=== PATIENT | female | born 1960 | race Caucasian/White ===

== ENCOUNTER 2017-05-12 07:12 | Inpatient (IN) | payer OTHER ==
[~2017-05-12] VITALS: Ht 170.2 cm; Wt 101.6 kg
--- NOTE | ~2017-05-12 | CR72 ---
[facility] A Service of [facility] & [facility] RADIOLOGY TEXT RESULTS PATIENT: BIANCA OLIVARES LOCATION: [facility] : 58 UNIT #: [id number] AGE: [address]: Carole Longoria APRN SEX: F ORDER DR: [id number] [facility] [address] [place], [place] [address] [id number] MR#: [id number] Acc #: [id number] NAME: BIANCA OLIVARES : 1960 SEX: F STUDY DATE/TIME: 05/12/2017 8:10 UNIT: [facility] ROOM: STUDY DESCRIPTION: CR Chest Single View Portable Attending Physician: Carole Longoria A.P.R.N. Ordering Physician: Ihsan Price M.D. Primary Care Physician: Primary Care Physician No MEDICAL IMAGING REPORT This report is preliminary unless electronic signature is present EXAM Portable chest INDICATION Shortness of air and chest pain. FINDINGS A portable view of the chest was obtained. It is compared to 02/10/2017. The heart size and vascularity are normal. There is some patchy right infrahilar infiltrate probably within the middle lobe. The bones are normal. IMPRESSION There is some density noted in the right lower lung probably within the right middle lobe consistent with an infiltrate. Dictated by... Malcom Hernandes M.D. THIS IS AN ELECTRONICALLY VERIFIED REPORT Malcom Hernandes M.D. at 05/12/2017 10:51 AM OH/martinez TD: 05/12/2017 10:22 JOB #: [id number] MEDICAL IMAGING REPORT Page 1 of 1 COPY
--- NOTE | ~2017-05-12 | EKG ---
PATIENT: BIANCA OLIVARES UNIT #: [id number] Ventricular Rate: 56 BPM Atrial Rate: 56 BPM P-R Interval: 140 ms QRS Duration: 90 ms Q-T Interval: 440 ms QTC Calculation(Bezet): 424 ms P [place]: 54 degrees Calculated R [place]: 52 degrees Calculated T [place]: 110 degrees Diagnosis Line: Sinus bradycardia Diagnosis Line: Septal infarct (cited on or before 05-SEP-2014) Diagnosis Line: T wave abnormality, consider anterolateral Diagnosis Line: ischemia Diagnosis Line: Abnormal ECG Diagnosis Line: When compared with ECG of 16-MAY-2017 06:00, Diagnosis Line: (unconfirmed) Diagnosis Line: Questionable change in initial forces of Septal Diagnosis Line: leads Diagnosis Line: T wave inversion more evident in Lateral leads Diagnosis Line: Confirmed by DIONTE CACERES MD ([id number]) on 05/17/2017 Diagnosis Line: 7:09:04 PM INTERPRETING MD: MORRIS GEE
--- NOTE | ~2017-05-12 | CO ---
Unit #: [id number] #: [id number] Patient: SHIRA GARDNER [id number] [address] [place], [place] [address] [id number] I MR#: [id number] NAME: SHIRA GARDNER ROOM: 334 Age: 56 Sex: F Admission Date: 05/12/2017 : 1960 Attending Physician: Rola Kerr M.D. Primary Care Physician: Primary Care Physician No Consultation Date: 05/14/2017 CONSULTATION REPORT DISCUSSION Ms. Shira Gardner is a 56-year-old female, seen in room 334 bed 1 on 05/14/[facility]. The patient diagnosed with mood disorder, compliant with medication, lying comfortably in bed. The patient was somewhat sleepy after cardiac cath. The patient vital signs; temperature 98.2, pulse 68, respirations 20, blood pressure 124/68, and oxygen saturation 100%. The patient still somewhat anxious, nervous, but denied any suicidal or homicidal ideation. Denied any psychotic symptom. Reports medication is helping her. REVIEW OF SYSTEMS Complete review of system unremarkable. MENTAL STATUS EXAMINATION General appearance, the patient dressed casually. Attention span and concentration, fair. Oriented in place and person. Mood and affect, sad and dysphoric. Speech, monotone. Thought process, circumstantial. The patient denied any thoughts of harming self or others. Recent and remote memory, poor. Insight and judgment, poor. DIAGNOSIS Bipolar mood disorder, recurrent, severe, depressed, F31.9. ASSESSMENT/PLAN 1. Supportive psychotherapy and psychoeducation provided to the patient. 2. Educated about benefits and side effects of medication and course and prognosis of illness. 3. Advised to continue with current medication. If needed, consider further adjustment of medication. The patient is currently on Lamictal, Klonopin, and Restoril. Still having anxiety as the patient is on Solu-Medrol 80 mg q.12 hour which may make the anxiety worse. Dictated by... Johanne Preciado/luisito TD: 05/15/2017 06:37 JOB #: [id number] Unit #: [id number] #: [id number] Patient: SHIRA GARDNER CONSULTATION REPORT Page 1 of 1 X Eder Anguiano MD CONSULTATION REPORT
--- NOTE | ~2017-05-12 | CT57 ---
[facility] A Service of [facility] & [facility] & [facility] RADIOLOGY TEXT RESULTS PATIENT: BIANCA OLIVARES LOCATION: [facility] 334- : 58 UNIT #: [id number] AGE: [address]: Rola Kerr MD SEX: F ORDER DR: [id number] [facility] [address], [place] [address] [id number] I MR#: [id number] Acc #: [id number] NAME: BIANCA OLIVARES : 1960 SEX: F STUDY DATE/TIME: 05/13/2017 14:37 UNIT: [address] ROOM: Critical access hospital STUDY DESCRIPTION: CT Chest Wo Cont Attending Physician: Rola Kerr M.D. Ordering Physician: Rola Kerr M.D. Primary Care Physician: Primary Care Physician No MEDICAL IMAGING REPORT This report is preliminary unless electronic signature is present EXAM CT chest without contrast HISTORY Shortness of air for 1 day. Suspected infiltrate on chest x-ray yesterday. FINDINGS This CT exam was performed with one or more of the following radiation dose reduction techniques: Automatic exposure control, adjustment of mA and/or kV according to patient size, and iterative reconstruction. CT chest without contrast demonstrates no airspace infiltrates or effusions. Minimal subpleural atelectasis posterior right lower lobe and mild chronic subpleural atelectasis or scarring in the posterior left lower lobe and in the lingula. No pleural effusions. Very small hiatal hernia. No adenopathy. IMPRESSION 1. No acute findings and no active disease. 2. Mild linear atelectasis or scarring in the posterior lower lobes bilaterally, slightly greater on the left. 3. No adenopathy or effusions. Dictated by... Lanre Arevalo M.D. THIS IS AN ELECTRONICALLY VERIFIED REPORT Lanre Arevalo M.D. at 05/13/2017 11:21 PM DFL/psc TD: 05/13/2017 17:29 JOB #: [id number] [facility] A Service of [facility] & [facility] & [facility] RADIOLOGY TEXT RESULTS PATIENT: BIANCA OLIVARES LOCATION: [facility] 334-01 : 58 UNIT #: [id number] AGE: [address]: Rola Kerr MD SEX: F ORDER DR: MEDICAL IMAGING REPORT Page 1 of 1 COPY
--- NOTE | ~2017-05-12 | CO ---
Unit #: [id number] #: [id number] Patient: SHIRA GARDNER [id number] [facility]. [place], [place] [address] [id number] I MR#: [id number] NAME: SHIRA GARDNER ROOM: 334 Age: 56 Sex: F Admission Date: 05/12/2017 : 1960 Attending Physician: Rola Kerr M.D. Primary Care Physician: Primary Care Physician No Consultation Date: 05/13/2017 CONSULTATION REPORT REASON FOR CONSULTATION Depression, anxiety, and bipolar disorder. HISTORY OF PRESENT ILLNESS Ms. Shira Gardner is a 56-year-old white female, seen in room 334, bed 1, on 05/23/2017 at [facility]. The patient dressed casually in hospital attire, lying comfortably in bed, in a propped up position. Able to answer question appropriately. The patient's vital signs, temperature 97.0, pulse 66, respirations 21, blood pressure 85/55, oxygen saturations 100%. The patient reports that she is followed by Dr. Lilly from [facility] on the outpatient basis and diagnosed with bipolar disorder. The patient has a history of previous treatment at [facility] in 2013 and diagnosed with bipolar mood disorder. The patient reports medication is helping her, still having paranoia, depression, anxiety. The patient was admitted with shortness of air. The patient has multiple health conditions. The patient reports that she is talking Latuda, clonazepam, Restoril, Celexa combination. Denied any current suicidal or homicidal ideation. Denied any use of any drug or alcohol. PAST PSYCHIATRIC HISTORY Remarkable for history of previous treatment at [facility], history of outpatient services through [facility]. No history of any suicide attempt. PAST MEDICAL HISTORY Remarkable for history of coronary artery disease, CHF, hypertension, hyperlipidemia, COPD, diabetes, history of CVA, GERD. MEDICATIONS The patient is on lamotrigine 200 mg at bedtime, Latuda 120 mg daily, Neurontin 800 mg t.i.d., clonazepam 0.5 mg b.i.d., Restoril 15 mg at bedtime, Celexa 20 mg daily, the patient is also on tramadol, Brilinta, losartan, albuterol, Lopressor, Amaryl, aspirin, furosemide, pantoprazole, atorvastatin, nitroglycerin, potassium. ALLERGIES To Symbicort. FAMILY HISTORY AND SOCIAL HISTORY The patient reports that she lives with her . Good support system. No history of abuse. No history of any substance abuse. REVIEW OF SYSTEMS Unit #: [id number] #: [id number] Patient: SHIRA GARDNER Complete review of systems is unremarkable except as mentioned above. PHYSICAL EXAMINATION Vital signs; temperature 97.0, pulse 66, respirations 21, blood pressure 85/55, oxygen saturation 100%. MENTAL STATUS EXAMINATION General appearance, the patient dressed casually, moderately obese, and lying comfortably in a propped up position. Made good eye contact, compliant, cooperative. Attention span and concentration, fair. Speech, regular rate, coherent. Oriented in time, place, and person. Mood and affect; sad, dysphoric, and flat. Thought process, circumstantial. Thought content, the patient denied any thoughts of harming self or others, but somewhat guarded. Recent and remote memory, fair. Language, intact. Fund of knowledge, fair. Insight and judgment, fair to slightly impaired. DIAGNOSES Psychiatric: Bipolar mood disorder, recurrent, depressed, severe, F31.9. Secondary diagnosis: Deferred. Medical diagnosis: Please refer to H and P. Stressors: Psychosocial stressors. ASSESSMENT AND PLAN 1. Supportive psychotherapy and psychoeducation provided to the patient. 2. Educated about benefits and side effects of medication and course and prognosis of illness. 3. Advised to continue with current medication combination. If needed, consider further adjustment of medication. We will continue to follow. Please feel free to call if any questions, telephone #[phone]. Dictated by... Eder Anguiano M.D. ERIKA/luisito TD: 05/14/2017 06:00 JOB #: [id number] CONSULTATION REPORT Page 1 of 1 X Eder Anguiano MD CONSULTATION REPORT
--- NOTE | ~2017-05-12 | EKG ---
PATIENT: BIANCA OLIVARES UNIT #: [id number] Ventricular Rate: 60 BPM Atrial Rate: 60 BPM P-R Interval: 162 ms QRS Duration: 86 ms Q-T Interval: 474 ms QTC Calculation(Bezet): 474 ms P [place]: 52 degrees Calculated R [place]: 38 degrees Calculated T [place]: 128 degrees Diagnosis Line: Normal sinus rhythm Diagnosis Line: Low voltage QRS Diagnosis Line: RSR' or QR pattern in V1 suggests right Diagnosis Line: ventricular conduction delay Diagnosis Line: Septal infarct (cited on or before 05-SEP-2014) Diagnosis Line: ST and T wave abnormality, consider anterolateral Diagnosis Line: ischemia Diagnosis Line: Abnormal ECG Diagnosis Line: When compared with ECG of 13-MAY-2017 07:27, Diagnosis Line: (unconfirmed) Diagnosis Line: T wave inversion less evident in Lateral leads Diagnosis Line: QT has shortened Diagnosis Line: Confirmed by DIONTE CACERES MD ([id number]) on 05/15/2017 Diagnosis Line: 11:37:08 PM INTERPRETING MD: MORRIS GEE
--- NOTE | ~2017-05-12 | CO ---
Unit #: [id number] #: [id number] Patient: SHIRA GARDNER [id number] [facility]. [place], [place] [address] [id number] I MR#: [id number] NAME: SHIRA GARDNER ROOM: 568 Age: 56 Sex: F Admission Date: 05/12/2017 : 1960 Attending Physician: Ananda Bustamante M.D. Primary Care Physician: Primary Care Physician No Consultation Date: 05/16/2017 CONSULTATION REPORT REASON FOR CONSULTATION Followup. DISCUSSION Ms. Shira Gardner is a 56-year-old white female, seen in room 568, bed 1 on 05/16/2017 at [facility]. The patient dressed casually in hospital attire, lying in a propped up position, seems somewhat anxious, nervous, sad, and dysphoric, but reports able to sleep good. Denied any thoughts of harming self or others. Reports making progress. The patient had a cardiac cath done with stent placed yesterday. The patient's vital signs; temperature 97.9, pulse 55, respirations 18, blood pressure 125/54, oxygen saturation 96%. REVIEW OF SYSTEMS Complete review of systems unremarkable. MENTAL STATUS EXAMINATION General appearance, the patient dressed in hospital attire, lying in a propped up position in bed. Attention span and concentration, fair. Speech, regular rate and coherent. Oriented in time, place, and person. Mood and affect, labile. Speech, regular rate and rhythm. Thought process, goal directed. Thought content, the patient denied any thoughts of harming self or others or any psychotic symptom. Recent and remote memory, fair. Language, intact. Fund of knowledge, fair. Insight and judgment, fair to slightly impaired. DIAGNOSES Psychiatric: Bipolar mood disorder, recurrent, severe, depressed F31.9. ASSESSMENT AND PLAN 1. Supportive psychotherapy and psychoeducation provided to the patient. 2. Educated about benefits and side effects of medication and course and prognosis of illness. 3. Advised to continue with current treatment. If needed, consider further adjustment of medication. We will continue to follow. Please feel free to call if any questions telephone #[phone]. Dictated by... Eder Anguiano M.D. ERIKA/luisito TD: 05/17/2017 17:15 Unit #: [id number] #: [id number] Patient: SHIRA GARDNER JOB #: [id number] CONSULTATION REPORT Page 1 of 1 X Eder Anguiano MD CONSULTATION REPORT
--- NOTE | ~2017-05-12 | EKG ---
PATIENT: BIANCA OLIVARES UNIT #: [id number] Ventricular Rate: 56 BPM Atrial Rate: 56 BPM P-R Interval: 152 ms QRS Duration: 90 ms Q-T Interval: 482 ms QTC Calculation(Bezet): 465 ms P [place]: 65 degrees Calculated R [place]: 84 degrees Calculated T [place]: 118 degrees Diagnosis Line: Sinus bradycardia Diagnosis Line: Low voltage QRS Diagnosis Line: Septal infarct (cited on or before 05-SEP-2014) Diagnosis Line: T wave abnormality, consider anterolateral Diagnosis Line: ischemia Diagnosis Line: Abnormal ECG Diagnosis Line: When compared with ECG of 14-MAY-2017 06:18, Diagnosis Line: (unconfirmed) Diagnosis Line: T wave inversion more evident in Lateral leads Diagnosis Line: Confirmed by DIONTE CACERES MD ([id number]) on 05/16/2017 Diagnosis Line: 12:07:15 AM INTERPRETING MD: MORRIS GEE
--- NOTE | ~2017-05-12 | DS ---
Unit #: [id number] #: [id number] Patient: BIANCA OLIVARES [id number] [facility]. [place], [place] [address] [id number] I MR#: [id number] NAME: BIANCA OLIVARES ROOM: 568 Age: 56 Sex: F Admission Date: 05/12/2017 : 1960 Discharge Date: 05/16/2017 Attending Physician: Ananda Bustamante M.D. Primary Care Physician: Primary Care Physician No DISCHARGE SUMMARY DISCHARGE DIAGNOSES 1. Non-ST elevation [place]. 2. Chronic systolic heart failure. 3. Acute hypoxic respiratory failure. 4. Tobacco abuse. 5. Type 2 diabetes. HOSPITAL COURSE The patient is a 56-year-old female presented to [facility] Emergency Department secondary to shortness of breath. In the ED, she also stated that she had had some left-sided chest pain that she described as achy and was located in the mid left upper chest. She complained of 2 to 3 pillow orthopnea, but this is felt to be chronic. She was noted to have oxygen saturations of 87% on room air, and her initial troponin was 0.11 with a repeat of 0.19. The patient was admitted and troponins were followed. Repeat troponin on the floor came back at 2.61 which did then peak at 2.81. The patient was taken for cardiac catheterization on 05/14/2017 and was noted to have an (1) __ lesion that was 100% at the origin and a 99% of the ramus near the origin. She was noted to have RCA mid lesion at 70%. She had a placement of stent at that time. Plans for repeat cath with further stenting was scheduled. The patient was started on Lovenox 10 mg per kg b.i.d. The following morning, the patient was taken back where she underwent stenting of ostia ramus which reduced the stenosis from 99.9% to 0%. The patient has done well 24 hours post cath. As a result, she is being discharged home. She will follow up with cardiac rehab. She is currently saturating 97% on room air. DISCHARGE MEDICATIONS 1. Albuterol nebulizers q. 6 hours as needed. 2. Neurontin 800 mg p.o. t.i.d. 3. Lamotrigine 200 mg p.o. q.h.s. 4. Celexa 20 mg p.o. daily. 5. Atorvastatin 80 mg p.o. q.h.s. 6. Latuda 120 mg daily. 7. Clonazepam 0.5 mg p.o. b.i.d. 8. Restoril 50 mg p.o. q.h.s. 9. Lopressor 25 mg p.o. b.i.d. 10. Furosemide 20 mg p.o. b.i.d. Unit #: [id number] #: [id number] Patient: BIANCA OLIVARES 11. Losartan 50 mg p.o. b.i.d. 12. Aspirin 81 mg daily. 13. Tramadol 50 mg p.o. b.i.d. 14. Protonix 40 mg daily. 15. Amaryl 2 mg p.o. b.i.d. 16. Brilinta 90 mg p.o. b.i.d. 17. Nitroglycerin 0.4 mg sublingual p.r.n. chest pain q. 5 minutes, 5 dose max. FOLLOWUP The patient should have cardiac rehab followup. Additionally, she should follow up with Dr. Vides in 4 to 6 weeks. Dictated by... Johanne Bryant/sharan TD: 05/17/2017 09:13 JOB #: [id number] DISCHARGE SUMMARY Page 1 of 1 X Ananda Bustamante MD X DISCHARGE SUMMARY
--- NOTE | ~2017-05-12 | HP ---
Unit #: [id number] #: [id number] Patient: BIANCA OLIVARES [id number] [address] [address] [id number] I MR#: [id number] NAME: BIANCA OLIVARES ROOM: 98579 Age: 56 Sex: F Admission Date: 05/12/2017 : 1960 Attending Physician: Debora Milligan M.D. Primary Care Physician: No Primary Care Physician HISTORY AND PHYSICAL CHIEF COMPLAINT Short of air. HPI The patient is a 56-year-old female with past medical history of COPD with continued tobacco abuse, coronary artery disease, CHF, diabetes, cerebrovascular accident, hypertension, hyperlipidemia, gastroesophageal reflux disease, and bipolar disorder who presented to the emergency department for evaluation of the above. The patient states that she has had about a week of not feeling well. She reports intermittently productive cough. Today, she woke from sleep with difficulty breathing. She has also had left-sided chest pain. She denies radiation of the chest pain. She describes it as "achy." It is in the mid and left upper chest. She denies any nausea or diaphoresis in association with the pain. She received nitroglycerin in the emergency department as well as 2 mg of morphine. The pain is still present. She denies any urinary symptoms. No change in her weight. She does have 2-3 pillow orthopnea, but it is not a new problem. She denies any leg swelling. She states that she has been taking her medications as prescribed. In the emergency department, temperature was 98.1, pulse 105, respirations 18, blood pressure 133/91, and oxygen saturation was 87% on room air. Chest x-ray shows right middle lobe infiltrate. EKG shows T wave inversion in V2 with flattening in leads V3, 4, and 5. Initial troponin was 0.11. Repeat 0.19. In addition to medications stated above, the patient received Rocephin and Zithromax. She is being admitted to [facility] for evaluation and further treatment. PAST MEDICAL HISTORY 1. Admission to [facility] November 122016 for chest pain with stable angina. She was seen in consultation by cardiology who recommended medical management. 2. Coronary artery disease, status post coronary artery bypass grafting. The patient had a cardiac catheterization in September of 2016 that showed 40% to 60% RCA stenosis. 3. Congestive heart failure. The patient's ejection fraction per the discharge summary in November of 2016 was noted to be 40% to 60% noted on cardiac cath from September 2016. There is an echocardiogram in [facility] from December 01, 2013, that showed an ejection fraction of 35% to 40% with severe septal hypokinesis, moderate anterior wall hypokinesis, and apical akinesis. No significant valvular heart disease. Unit #: [id number] #: [id number] Patient: BIANCA OLIVARES 4. Hypertension. 5. Hyperlipidemia. 6. COPD with continued tobacco abuse. 7. Diabetes. 8. History of cerebrovascular accident with no residual. 9. Bipolar disorder. 10. GERD. PAST SURGICAL HISTORY 1. Cardiac catheterization. 2. Coronary artery bypass grafting. 3. Cholecystectomy. 4. Hysterectomy. SOCIAL HISTORY The patient lives with her . She continues to smoke a pack of cigarettes daily. There is no alcohol use. She walks without assistance. Her code status is a full code. FAMILY HISTORY Notable for her mother having her first myocardial infarction in her 50s. She also had coronary artery disease and diabetes. ALLERGIES Symbicort. HOME MEDICATIONS 1. Lamotrigine 200 mg at bedtime. 2. Potassium 10 mEq twice daily. 3. Nitroglycerin 0.4 mg sublingual p.r.n. 4. Atorvastatin 80 mg at bedtime. 5. Pantoprazole 40 mg daily. 6. Furosemide 40 mg twice daily. 7. Latuda 120 mg daily. 8. Aspirin 81 mg daily. 9. Amaryl 2 mg twice daily. 10. Lopressor 25 mg twice daily. 11. Neurontin 800 mg t.i.d. 12. Clonazepam 0.5 mg twice daily. 13. Restoril 15 mg at bedtime. 14. Albuterol q.6 hours p.r.n. 15. Celexa 20 mg daily. 16. Losartan 50 mg daily. 17. Brilinta 90 mg twice daily. 18. Tramadol 50 mg b.i.d. p.r.n. REVIEW OF SYSTEMS A complete review of systems is negative, except as indicated in the HPI. DIAGNOSTIC TESTS CARDIOVASCULAR: EKG shows normal sinus rhythm, 92 beats per minute. There is T wave inversion in lead V2 with flattening in leads V3 through V5. LABORATORY: Initial troponin is 0.11 and repeat is 0.19. Complete blood count is completely normal. INR is 0.9. Comprehensive metabolic panel notable for a glucose of 222; BUN and creatinine 15, and 1.1, respectively; and albumin is 3.3. BNP is 175. D-dimer 373. Unit #: [id number] #: [id number] Patient: BIANCA OLIVARES IMAGING: Chest x-ray shows density in the right lower lobe and within the right middle lobe consistent with infiltrate. PHYSICAL EXAMINATION VITAL SIGNS: Temperature is 98.1, pulse 105, respirations 18, blood pressure 133/91, and oxygen saturation 87% on room air, most recently 94% on 2 liters. GENERAL: The patient is a female who is awake and alert in no acute distress. HEENT: The head is atraumatic. Mucous membranes are moist. NECK: Supple. Trachea is midline. CARDIOVASCULAR: Regular rate and rhythm. LUNGS: Demonstrate a few expiratory wheezes. Breathing is not labored with conversation. ABDOMEN: Soft and nontender with bowel sounds present in all four quadrants. EXTREMITIES: Nontender with no pedal edema. NEUROLOGIC: The patient is awake and alert. She follows commands. PSYCH: Mood and affect are normal. The patient is cooperative. SKIN: Skin of examined areas is warm and dry. The patient, however, was noted to have bed bugs upon presentation to the emergency department. She is status post shower. ASSESSMENT The patient is a 56-year-old female with: 1. Acute renal failure, hypoxic. 2. Pneumonia, community acquired. The patient received Rocephin and azithromycin in the emergency department. 3. Chest pain with troponin of 0.11 followed by 0.19. EKG shows T wave inversion. The patient does have a history of coronary artery disease. 4. Chronic obstructive pulmonary disease exacerbation with continued tobacco abuse. 5. Uncontrolled diabetes with an initial glucose of 222. 6. Coronary artery disease, status post coronary artery bypass grafting. 7. Congestive heart failure with ejection fraction of 35% to 40% noted on echocardiogram in November of 2013. 8. History of cerebrovascular accident with no residual. 9. Bipolar disorder. 10. Hypertension. 11. Hyperlipidemia. 12. Gastroesophageal reflux disease. 13. Bed bug infestation. PLAN 1. Admit to intermediate level. 2. Healthy heart, consistent carb diet. 3. Supplemental oxygen, 2-4 liters, to maintain saturations greater than 92%. 4. Blood cultures x2. 5. Sputum culture and sensitivity. 6. Rocephin and azithromycin for community-acquired pneumonia pending further workup. 7. DuoNebs q.4 hours while awake and q.2 hours p.r.n. 8. Solu-Medrol 80 mg IV q.12 hours with first dose now. 9. Mucinex 600 mg p.o. b.i.d. 10. Procalcitonin level. Unit #: [id number] #: [id number] Patient: BIANCA OLIVARES 11. Fasting lipid panel. 12. Serial cardiac enzymes. 13. Aspirin 325 mg p.o. x1 if not already given. 14. Consult Dr. Roy regarding elevated troponin. 15. Strict Is and Os. 16. Daily weights. 17. Repeat labs in the morning. 18. SCDs for DVT prophylaxis. 19. Additional workup and consultants based on above. 20. Regarding code status, the patient is a full code. Dictated by Debora Milligan M.D. JLUIS/tristin TD: 05/12/2017 13:32 JOB #: [id number] HISTORY AND PHYSICAL Page 1 of 1 X Debora Milligan MD HISTORY AND PHYSICAL
--- NOTE | ~2017-05-12 | CO ---
Unit #: [id number] #: [id number] Patient: BIANCA GARDNER [id number] [facility]. [place], [place] [address] [id number] MR#: [id number] NAME: BIANCA GARDNER ROOM: 334 Age: 56 Sex: F Admission Date: 05/12/2017 : 1960 Attending Physician: Rola Kerr M.D. Primary Care Physician: Primary Care Physician No Consultation Date: 05/12/2017 CONSULTATION REPORT JOB NOTE: CC: PRIMARY CARE DOCTOR, [facility] REASON FOR CONSULTATION Elevated troponin and chest pain. HISTORY OF PRESENT ILLNESS This is a 56-year-old white female, who is well known to Dr. Peace. She follows her in the office, has a history of CABG in 2000 and a catheterization back in 09/2016 that showed BUCKNER to the LAD was patent and had 75% stenosis in the ramus and 40% to 60% in the RCA. Her EF at that time was 45%. The patient is a diabetic, COPD, bipolar, hypertension, hyperlipidemia, seizures, continues to smoke. The patient presented to the emergency room with acute increased cough, chest congestion, shortness of breath. The patient said she also does developed later some substernal chest discomfort. She said it is worse when she coughs or takes in a deep breath. She denies any chest discomfort radiated up to her neck, bilateral jaws, shoulders, arms or elbow. She denies any palpitations. No presyncope, or syncope. She did admit to having some slight dizziness with the chest pain. Known her previous health condition, she came into the emergency room for further evaluation and management. The patient's initial cardiac enzymes; her troponin was 0.11 and then later 0.11. CK-MB is 3.6 and 5.2. WBCs are 9.1, her hemoglobin stable. Creatinine is 1.1. Potassium 4.1. BNP is 175. Chest x-ray showed some density in the right lower lung within the right middle lobe consistent with an infiltrate. EKG shows normal sinus rhythm. Previous septal infarct, age undetermined, poor R-wave progression. The patient will be admitted for pneumonia and chest pain and we have been consulted to treat. PAST MEDICAL HISTORY 1. Coronary artery disease, CABG in 2000, last cardiac cath 09/2016 showed BUCKNER to the LAD was patent, 75% stenosis in the ramus, 40% to 60% stenosis in the RCA with LVEF of 45% ejection fraction on discharge summary. 2D echo done here in 11/2016 shows LVEF of 30% to 35% with severe septal hypokinesis and apical akinesis and moderate anterior wall hypokinesis. No significant valvular disease. 2. Type 2 diabetes mellitus, type 2. 3. Hypertension. 4. Hyperlipidemia. 5. COPD. 6. GERD. 7. Bipolar disorder. 8. Seizure disorder. 9. History of TIA in the past. Unit #: [id number] #: [id number] Patient: BIANCA GARDNER 10. Nicotine abuse. PAST SURGICAL HISTORY 1. In 2000, had a CABG. 2. Colon polyps removed. 3. Cholecystectomy. 4. Hysterectomy. 5. Colon surgery. HOME MEDICATIONS Lamotrigine 200 mg p.o. at bedtime, potassium chloride 10 mEq p.o. b.i.d., Nitrostat 0.4 mg sublingual p.r.n. for chest pain, atorvastatin 80 mg p.o. at bedtime, pantoprazole 40 mg p.o. daily, furosemide 40 mg p.o b.i.d., Latuda 120 mg p.o. daily, aspirin 81 mg p.o. daily, Amaryl 2 mg p.o. b.i.d., metoprolol 25 mg p.o. b.i.d., Neurontin 800 mg p.o. t.i.d., clonazepam 0.5 mg p.o. b.i.d., Restoril 15 mg p.o. at bedtime, albuterol 3 mL nebulizers every 6 hours p.r.n. for shortness of air, Celexa 20 mg p.o. daily, losartan 50 mg p.o. daily, Brilinta 90 mg p.o. b.i.d., tramadol 50 mg p.o. b.i.d. ALLERGIES Budesonide from Symbicort. SOCIAL HISTORY The patient continues to smoke. She has been smoking a pack a day. She has been smoking for about 40 years. No alcohol or illicit drug abuse. The patient is very sedentary. FAMILY HISTORY Mother had a CABG and MT in her 50s. She has no siblings and her father was in generally well health. REVIEW OF SYSTEMS See details in HPI. PHYSICAL EXAMINATION GENERAL: Ms. Gardner is a 56-year-old female, in no acute respiratory distress. She is awake, alert, and oriented. VITAL SIGNS: Blood pressure 134/86, respirations 20, heart rate is 88, temperature 98.1, O2 saturations 95% on room air. NECK: Trachea midline. No thyromegaly or lymphadenopathy. Normal carotid upstrokes. No jugular venous distention. HEART: S1, S2. Regular rate and rhythm. No clicks, murmurs, or rubs. LUNGS: Diminished. Few faint scattered rhonchi and wheeze. ABDOMEN: Soft and nontender. EXTREMITIES: Pedal pulses are palpable. No pedal edema. DIAGNOSTIC STUDIES LABORATORY RESULTS: Glucose is 222, BUN 15, creatinine 1.1, eGFR is 55.7. Sodium 140, potassium 4.1, chloride 105, CO2 of 27, calcium 9.0, total protein 6.4, albumin 3.3, bilirubin total 0.5, AST 20, ALT 16, alkaline phosphatase is 73. WBC is 9.1, hemoglobin 13.5, hematocrit 40.6, and platelets is 209. Initial cardiac enzymes; CK-MB is 3.6, troponin 0.11. CK-MB is 5.2, troponin 0.19. INR 0.9. D-dimer is 373. IMAGING STUDIES: Chest x-ray shows some density in the right lower lung, probably in the right middle lung lobe, consistent with an infiltrate. Unit #: [id number] #: [id number] Patient: BIANCA GARDNER CARDIOVASCULAR STUDIES: EKG shows normal sinus rhythm with left atrial abnormality, Q-waves in septal leads, poor R-wave progression, nonspecific ST-T wave abnormalities. IMPRESSION 1. Acute respiratory failure, pneumonia, and some exacerbation of chronic obstructive pulmonary disease. 2. Elevated troponin, acute coronary syndrome, history of coronary artery disease, see details in HPI. 3. Left ventricular ejection fraction of 30% to 35% on last 2D echo in 11/2016. 4. Hypertension. 5. Hyperlipidemia. 6. Diabetes mellitus, type 2. 7. Chronic obstructive pulmonary disease. 8. Gastroesophageal reflux disease. 9. Bipolar disorder. 10. Seizure disorder. 11. History of transient ischemic attack. 12. Nicotine abuse. 13. Bed bug infestation. PLAN 1. Cardiology consult to assist with evaluation and management. 2. We will treat for acute coronary syndrome, continue with aspirin. Continue on Brilinta and start Lovenox 1 mg/kg subcu b.i.d. 3. Obtain a 2D echo to re-evaluate her LV function and valves. 4. Continue to monitor cardiac enzymes and EKG. On exam, her symptoms may be pleuritic in nature due to the pneumonia; however, with her significant cardiac history, the patient may need a cardiac cath after her pneumonia is treated. 5. Encouraged the patient to completely quit smoking. Smoking cessation information was provided to the patient. 6. We will increase her metoprolol to 25 mg every 6 hours with parameters and make adjustments if needed. 7. Obtain a fasting lipid profile and evaluate. 8. Treatment for pneumonia. Blood cultures are pending. 9. It was evaluated by the staff and reported to the hospitalist that the patient has a bed bug infestation and she will have treatment for that during this admission. 10. Further recommendations pending per Dr. Peace. Thank you very much for allowing us to assist in the care. Dictated by... Jane Jacome/luisito TD: 05/12/2017 22:58 JOB #: [id number] Unit #: [id number] #: [id number] Patient: BIANCA GARDNER CONSULTATION REPORT Page 1 of 1 X Magi Suh APRN CONSULTATION REPORT
--- NOTE | ~2017-05-12 | EKG ---
PATIENT: BIANCA OLIVARES UNIT #: [id number] Ventricular Rate: 65 BPM Atrial Rate: 65 BPM P-R Interval: 140 ms QRS Duration: 92 ms Q-T Interval: 436 ms QTC Calculation(Bezet): 453 ms P [place]: 60 degrees Calculated R [place]: 75 degrees Calculated T [place]: 109 degrees Diagnosis Line: Normal sinus rhythm with sinus arrhythmia Diagnosis Line: Low voltage QRS Diagnosis Line: Incomplete right bundle branch block Diagnosis Line: Septal infarct (cited on or before 05-SEP-2014) Diagnosis Line: T wave abnormality, consider anterolateral Diagnosis Line: ischemia Diagnosis Line: Abnormal ECG Diagnosis Line: When compared with ECG of 15-MAY-2017 11:49, Diagnosis Line: T wave inversion less evident in Lateral leads Diagnosis Line: Confirmed by DIONTE CACERES MD ([id number]) on 05/16/2017 Diagnosis Line: 11:09:40 PM INTERPRETING MD: MORRIS GEE
--- NOTE | ~2017-05-12 | EKG ---
PATIENT: BIANCA OLIVARES UNIT #: [id number] Ventricular Rate: 91 BPM Atrial Rate: 91 BPM P-R Interval: 152 ms QRS Duration: 92 ms Q-T Interval: 402 ms QTC Calculation(Bezet): 494 ms P [place]: 49 degrees Calculated R [place]: 54 degrees Calculated T [place]: 95 degrees Diagnosis Line: Normal sinus rhythm Diagnosis Line: Possible Left atrial enlargement Diagnosis Line: Incomplete right bundle branch block Diagnosis Line: Septal infarct (cited on or before 05-SEP-2014) Diagnosis Line: Abnormal ECG Diagnosis Line: When compared with ECG of 12-NOV-2016 21:16, Diagnosis Line: Non-specific change in ST segment in Anterior Diagnosis Line: leads Diagnosis Line: Nonspecific T wave abnormality now evident in Diagnosis Line: Lateral leads Diagnosis Line: Confirmed by DIONTE CACERES MD ([id number]) on 05/15/2017 Diagnosis Line: 6:54:33 AM INTERPRETING MD: MORRIS GEE
--- NOTE | ~2017-05-12 | EKG ---
PATIENT: BIANCA OLIVARES UNIT #: [id number] Ventricular Rate: 92 BPM Atrial Rate: 92 BPM P-R Interval: 148 ms QRS Duration: 90 ms Q-T Interval: 366 ms QTC Calculation(Bezet): 452 ms P [place]: 45 degrees Calculated R [place]: 104 degrees Calculated T [place]: 110 degrees Diagnosis Line: Normal sinus rhythm Diagnosis Line: Rightward axis Diagnosis Line: Low voltage QRS Diagnosis Line: RSR' or QR pattern in V1 suggests right Diagnosis Line: ventricular conduction delay Diagnosis Line: Septal infarct , age undetermined Diagnosis Line: Abnormal ECG Diagnosis Line: No previous ECGs available Diagnosis Line: Confirmed by DIONTE CACERES MD ([id number]) on 05/15/2017 Diagnosis Line: 7:00:09 AM INTERPRETING MD: MORIRS GEE
[~2017-05-12 07:12] MED LIST: ACETAMINOPHEN PO; ACETAMINOPHEN500 M2 PO; ACETAMINOPHEN500 M3 PO; ACETAMINOPHEN500 M4 PO; ADVAIR 250-501 EACH INH; ADVAIR 2501 DISK W/D PO; ALB/IPRATROPIUM/1 E2 INH; ALBUTEROL MININEB; ALBUTEROL MININEB NEB; ALBUTEROL NEB; ALBUTEROL0.63 MG/3 IH; ALBUTEROL17 G1 IH; ALBUTEROL17 GM INH; ALBUTEROL2.5 MG/0.5 IH; ALBUTEROL20 ml INH; ALPRAZOLAM PO; ALPRAZOLAM0.5 MG PO; AMARYL2 MG PO; AMBIEN PO; AMBIEN10 MG PO; ASPIRIN EC81 M1 PO; ASPIRIN ENTERI325 M1 PO; ASPIRIN PO; ASPIRIN81 M1 PO; ASPIRIN81 M2 PO; ASPIRIN81 MG PO; ATORVASTATIN CA80 MG PO; AUGMENTIN875 MG PO; AZITHROMYCIN250 MG PO; AZITHROMYCIN500 MG PO; BACTRIM DS TABL1 TA1 PO; BAYER ASPIRIN325 M1 PO; BRILINTA90 MG PO; CARVEDILOL12.5 MG PO; CARVEDILOL25 MG PO; CARVEDILOL6.25 MG PO; CELEXA PO; CELEXA20 MG; CELEXA20 MG PO; CHEWABLE ASPIRI81 MG PO; CIPRO PO; CLONAZEPAM0.5 MG PO; COLACE PO; COMBIVENT INH14.7 GM INH; COMBIVENT MININEB INH; COMBIVENT U/D3 M1 INH; COREG PO; COREG12.5 MG PO; DARVOCET-N 1001 TAB PO; DIAZEPAM PO; FERROUS SULFATE PO; FLAGYL250 M1 PO; FLEXERIL PO; FLONASE16 GM; FOLIC ACID PO; FUROSEMIDE40 MG PO; GABAPENTIN400 M1 PO; GABAPENTIN400 MG PO; GABAPENTIN600 MG PO; GAS-X125 M1 PO; GLIMEPIRIDE2 MG PO; GLYBURIDE1.25 MG PO; GLYNASE PO; HCTZ PO; HYDROCODONE-APA1 T42 PO; IBUPROFEN800 MG PO; IMDUR PO; IMDUR-ER30 MG; IMDUR-ER30 MG PO; IPRAT-ALBUT 0.5-3 ML IH; IPRATR-ALBUTEROL3 ML INH; IRON325 ( 65 ) PO; ISORDIL PO; ISOSORBIDE DINI30 MG; ISOSORBIDE DINI30 MG PO; ISOSORBIDE DINI40 MG PO; ISOSORBIDE MONO20 M1 PO; ISOSORBIDE MONO30 M1 PO; ISOSORBIDE MONO60 M1 PO; KEFLEX500 MG PO; KLONOPIN0.5 MG PO; KLOR-CON PO; LAMICTAL PO; LAMICTAL XR300 MG PO; LAMICTAL150 MG DOB; LAMICTAL150 MG PO; LAMOTRIGINE150 MG PO; LAMOTRIGINE200 MG PO; LAMOTRIGINE25 M1 PO; LASIX PO; LATUDA120 MG PO; LATUDA20 MG PO; LATUDA40 MG PO; LATUDA80 MG PO; LEVAQUIN PO; LEVOFLOXACIN500 MG PO; LIPITOR40 MG PO; LISINOPRIL PO; LISINOPRIL10 MG PO; LISINOPRIL5 MG PO; LOPRESSOR PO; LORTAB 5/500 TA1 TA1 PO; LORTAB 5/500 TA1 TA2 PO; LORTAB ELIXIR480 ML PO; LORTAB PO; LOSARTAN POTASS50 MG PO; LYRICA PO; LYRICA100 MG PO; LYRICA300 MG; MACRODANTIN PO; MEDROL PO; MEDROL4 MG/DOSE- PO; MELOXICAM15 MG PO; METFORMIN HCL500 M1 PO; METFORMIN PO; METHIMAZOLE10 MG PO; METRONIDAZOLE PO; MICRO-K10 MEQ PO; MOBIC PO; MUCINEX DM1 TAB.SR . PO; NASONEB NASAL1 EACH MC; NEBULIZER1 PKT MC; NEURONTIN PO; NEURONTIN600 MG PO; NEURONTIN800 MG PO; NEXIUM PO; NEXIUM20 MG PO; NICOTINE PATCH1 EACH TD; NICOTINE TRANSD14 MG EXT; NITROGLYCERIN0.4 MG SL; NITROGLYGERIN0.4 MG SL; NORCO 5/325 TAB1 TAB PO; OMEPRAZOLE20 M1 PO; PANTOPRAZOLE SO40 MG PO; PERCOCET10 PO; PHENERGAN25 M1 PO; PHENERGAN25 MG PO; PLAVIX PO; POTASSIUM CHLO10 ME1 PO; POTASSIUM CHLO10 MEQ PO; PREDNISONE PO; PREDNISONE10 MG PO; PRILOSEC PO; PROAIR HFA8.5 GM INH; PROTONIX PO; REMERON15 MG PO; RESTORIL15 MG PO; SEROQUEL PO; SEROQUEL XR200 MG PO; SEROQUEL50 MG; SEROQUEL50 MG PO; SIMVASTATIN40 MG PO; SINGULAIR PO; STOOL SOFTENER100 M1 PO; SYMBICORT INH; TAPAZOLE10 MG PO; THIAMINE HCL100 MG PO; TRAMADOL HCL50 M1 PO; TRAMADOL HCL50 M2 PO; TUSSIN15 MG/5 M1 PO; ULTRAM PO; VICODIN 5-3001 EACH PO; VICODIN 5/1 TAB 5/50; VICODIN 5/1 TAB 5/50 PO; VIT B-12 PO; VOLTAREN50 MG PO; WELLBUTRIN SR150 MG PO; ZESTRIL2.5 M1 PO; ZIPSOR25 MG PO; ZITHROMAX PO; ZITHROMAX1 G/PKT PO; ZOCOR PO; ZOFRAN ODT4 MG PO; ZYRTEC PO
[2017-05-12 08:14] LABS: POC - CKMB 3.6 ng/mL (0.0-7.9); POC - TROPONIN 0.11 ng/mL (<=0.05)
[2017-05-12 08:15] LABS: BASOPHIL# 0.1 X10e3 (0-0.3); BASOPHIL% 1.2 % (0-2.5); DIFF IND NO; EOSINOPHIL# 0.6 X10e3 (0-0.7); EOSINOPHIL% 6.8 % (0.0-7.0); HEMATOCRIT 40.6 % (35.0-45.0); HEMOGLOBIN 13.5 gm/dL (12.0-16.0); LYMPHOCYTE# 1.6 X10e3 (1.0-3.5); LYMPHOCYTE% 17.6 % (17.0-45.0); MEAN CELL VOLUME 91.6 FL (83-96); MEAN CORPUSCULAR HEMOGLOBIN 30.6 PG (28-34); MEAN CORPUSCULAR HGB CONC 33.4 g/dL (30-36); MEAN PLATELET VOLUME 8.3 FL (6.5-11.5); MONOCYTE# 0.6 X10e3 (0-1.0); MONOCYTE% 6.2 % (3.0-12.0); NEUTROPHIL# 6.2 X10e3 (1.5-7.1); NEUTROPHIL% 68.2 % (40-75); PLATELET COUNT 209 X10e3 (140-420); RED BLOOD COUNT 4.43 X10e (3.90-5.30); RED CELL DISTRIBUTION WIDTH 14.9 % (11.0-15.5); WHITE BLOOD COUNT 9.1 X10e3 (4.0-10.5)
[2017-05-12 08:29] LABS: INR 0.9; PROTHROMBIN TIME (PATIENT) 9.5 SECONDS (10.0-11.7)
[2017-05-12 08:39] LABS: ALBUMIN SERUM 3.3 g/dL (3.5-5.0); ALKALINE PHOSPHATASE 73 U/L (32-92); ALT (SGPT) 16 U/L (10-40); AST (SGOT) 20 U/L (10-42); BILIRUBIN,TOTAL 0.5 mg/dL (0.2-2.0); BLOOD UREA NITROGEN 15 mg/dL (9-23); BUN/CREATININE RATIO 13.63; CARBON DIOXIDE 27 mmol/L (22-31); CHLORIDE 105 mmol/L (100-111); CREATININE SERUM 1.1 mg/dL (0.6-1.4); GLOM FILT RATE Estimated 55.7 mL/min (>60); GLUCOSE FASTING 222 mg/dL (70-110); POTASSIUM 4.1 mmol/L (3.5-5.1); PROTEIN TOTAL SERUM 6.4 g/dL (6.0-8.3); SODIUM 140 mmol/L (135-145)
[2017-05-12 08:41] LABS: BILIRUBIN, DIRECT <0.1 mg/dL (0.0-0.2); BILIRUBIN,INDIRECT 0.4 mg/dL (0.0-0.9)
[2017-05-12 09:56] LABS: POC - CKMB 5.2 ng/mL (0.0-7.9); POC - TROPONIN 0.19 ng/mL (<=0.05)
[2017-05-12] MEDS ORDERED: NEURONTIN800 MG PO (10:19)
[2017-05-12] MEDS ORDERED: CLONAZEPAM0.5 MG PO (10:20)
[2017-05-12] MEDS ORDERED: RESTORIL15 MG PO (10:20)
[2017-05-12] MEDS ORDERED: CELEXA20 MG PO (10:21)
[2017-05-12] MEDS ORDERED: ALBUTEROL MININEB NEB (10:21)
[2017-05-12] MEDS ORDERED: BRILINTA90 MG PO (10:22)
[2017-05-12] MEDS ORDERED: TRAMADOL HCL50 M2 PO (10:22)
[2017-05-12] MEDS ORDERED: LOSARTAN POTASS50 MG PO (10:22)
[2017-05-12 12:18] LABS: %MB 4.4 % (0.0-4.0)
[2017-05-12 18:44] LABS: HEMATOCRIT 40.5 % (35.0-45.0); HEMOGLOBIN 13.2 gm/dL (12.0-16.0); MEAN CORPUSCULAR HGB CONC 32.6 g/dL (30-36); MEAN PLATELET VOLUME 8.6 FL (6.5-11.5); RED BLOOD COUNT 4.4 X10e (3.90-5.30); RED CELL DISTRIBUTION WIDTH 14.8 % (11.0-15.5); WHITE BLOOD COUNT 9.6 X10e3 (4.0-10.5)
[2017-05-12 18:57] LABS: INR 0.9
[2017-05-12 22:30] LABS: %MB 14.9 % (0.0-4.0); MB 38.4 ng/ml
[2017-05-13 04:57] LABS: BASOPHIL% 0.2 % (0-2.5); EOSINOPHIL% 0.1 % (0.0-7.0); HEMATOCRIT 39.9 % (35.0-45.0); LYMPHOCYTE% 6.2 % (17.0-45.0); MEAN CELL VOLUME 92.1 FL (83-96); MEAN CORPUSCULAR HGB CONC 32.6 g/dL (30-36); MEAN PLATELET VOLUME 8.6 FL (6.5-11.5); MONOCYTE# 0.4 X10e3 (0-1.0); MONOCYTE% 2.7 % (3.0-12.0); NEUTROPHIL# 14.1 X10e3 (1.5-7.1); NEUTROPHIL% 90.8 % (40-75); PLATELET COUNT 241 X10e3 (140-420); RED BLOOD COUNT 4.33 X10e (3.90-5.30); RED CELL DISTRIBUTION WIDTH 14.7 % (11.0-15.5)
[2017-05-13 04:58] LABS: DIFF IND YES; WHITE BLOOD COUNT 15.5 X10e3 (4.0-10.5)
[2017-05-13 05:08] LABS: INR 0.9; PARTIAL THROMBOPLASTIN TIME 24.9 SECONDS (23.5-31.3); PROTHROMBIN TIME (PATIENT) 10.2 SECONDS (10.0-11.7)
[2017-05-13 06:11] LABS: PLATELET ESTIMATE NORMAL (NORMAL)
[2017-05-13 06:12] LABS: ANISOCYTOSIS SL
[2017-05-13 07:39] LABS: ALBUMIN SERUM 3.1 g/dL (3.5-5.0); BILIRUBIN,TOTAL 0.2 mg/dL (0.2-2.0); BUN/CREATININE RATIO 15.55; CALCIUM SERUM 8.8 mg/dL (8.4-10.2); CREATININE SERUM 0.9 mg/dL (0.6-1.4); POTASSIUM 4.3 mmol/L (3.5-5.1); PROTEIN TOTAL SERUM 6.2 g/dL (6.0-8.3)
[2017-05-14 07:53] LABS: HEMATOCRIT 36.3 % (35.0-45.0); HEMOGLOBIN 12.1 gm/dL (12.0-16.0); MEAN CELL VOLUME 91.8 FL (83-96); MEAN CORPUSCULAR HEMOGLOBIN 30.7 PG (28-34); MEAN CORPUSCULAR HGB CONC 33.4 g/dL (30-36); MEAN PLATELET VOLUME 8.7 FL (6.5-11.5); RED BLOOD COUNT 3.96 X10e (3.90-5.30); WHITE BLOOD COUNT 22.2 X10e3 (4.0-10.5)
[2017-05-14 08:00] LABS: BUN/CREATININE RATIO 17.77; CALCIUM SERUM 8.5 mg/dL (8.4-10.2); CREATININE SERUM 0.9 mg/dL (0.6-1.4); POTASSIUM 4.5 mmol/L (3.5-5.1)
[2017-05-15 08:16] LABS: HEMATOCRIT 37.4 % (35.0-45.0); HEMOGLOBIN 12.4 gm/dL (12.0-16.0); MEAN CELL VOLUME 92.1 FL (83-96); MEAN CORPUSCULAR HEMOGLOBIN 30.5 PG (28-34); MEAN CORPUSCULAR HGB CONC 33.2 g/dL (30-36); MEAN PLATELET VOLUME 8.5 FL (6.5-11.5); RED BLOOD COUNT 4.06 X10e (3.90-5.30); RED CELL DISTRIBUTION WIDTH 15.3 % (11.0-15.5); WHITE BLOOD COUNT 19.8 X10e3 (4.0-10.5)
[2017-05-15 08:27] LABS: INR 0.9; PARTIAL THROMBOPLASTIN TIME 23.8 SECONDS (23.5-31.3); PROTHROMBIN TIME (PATIENT) 10.2 SECONDS (10.0-11.7)
[2017-05-15 08:50] LABS: CALCIUM SERUM 8.3 mg/dL (8.4-10.2); CREATININE SERUM 0.8 mg/dL (0.6-1.4); GLOM FILT RATE Estimated 81.9 mL/min (>60); POTASSIUM 4.7 mmol/L (3.5-5.1)
[2017-05-15 20:24] LABS: ANGIO %MB 6.8 % (0.0-4.0); ANGIO MB 1.9 ng/ml
[2017-05-16 03:55] LABS: HEMATOCRIT 37.9 % (35.0-45.0); HEMOGLOBIN 12.5 gm/dL (12.0-16.0); MEAN CELL VOLUME 92.2 FL (83-96); MEAN CORPUSCULAR HEMOGLOBIN 30.4 PG (28-34); MEAN CORPUSCULAR HGB CONC 32.9 g/dL (30-36); MEAN PLATELET VOLUME 8.8 FL (6.5-11.5); RED BLOOD COUNT 4.11 X10e (3.90-5.30); WHITE BLOOD COUNT 15.3 X10e3 (4.0-10.5)
[2017-05-16 04:44] LABS: ANGIO %MB 8.2 % (0.0-4.0); ANGIO MB 1.4 ng/ml
[2017-05-16 04:48] LABS: CALCIUM SERUM 8.6 mg/dL (8.4-10.2); GLOM FILT RATE Estimated 62.5 mL/min (>60); POTASSIUM 4.8 mmol/L (3.5-5.1)
[2017-06-20] MEDS ORDERED: PATIENT'S PHARMACY (17:17)
[2017-06-20] MEDS ORDERED: COZAAR PO (17:17)
[2017-06-20] MEDS ORDERED: BENZONATATE PO (17:17)
[2017-06-20] MEDS ORDERED: KCL PO (17:17)
[2017-06-20] MEDS ORDERED: LEXAPRO20 MG PO (17:17)
[2017-06-20] MEDS ORDERED: LAMICTAL PO (17:18)
[2017-06-20] MEDS ORDERED: ASPIRIN EC81 M1 PO (17:18)
[2017-06-20] MEDS ORDERED: BRILINTA90 MG PO (17:18)
[2017-06-20] MEDS ORDERED: LIPITOR PO (17:18)
[2017-06-20] MEDS ORDERED: PROTONIX PO (17:18)
[2017-06-20] MEDS ORDERED: LATUDA120 MG PO (17:18)
[2017-06-20] MEDS ORDERED: NITROGLYCERIN0.4 MG PO (17:19)
[2017-06-20] MEDS ORDERED: CLONAZEPAM0.5 MG PO (17:19)
[2017-06-20] MEDS ORDERED: AMARYL2 MG PO (17:19)
[2017-06-20] MEDS ORDERED: LASIX20 MG PO (17:19)
== END 2017-05-16 17:51 | disposition home or self-care (01) | DRG 246 ==
LOC: CED 07:12 → C3A PCU 10:30 → CEDOF 10:30 → CED 11:07 → CEDOF 14:11 → C3A PCU 14:11 → C5C 05-15 13:50
PROVIDERS: Emergency Medicine; Family Medicine; Internal Medicine Cardiovascular Disease; Internal Medicine Clinical Cardiac Electrophysiology; Nurse Practitioner
PROC: B24BYZZ Ultrasonography of Heart with Aorta using Other Contrast (ICD-10-PCS; principal; 2017-05-13)
PROC: 027034Z Dilation of Coronary Artery, One Artery with Drug-eluting Intraluminal Device, Percutaneous Approach (ICD-10-PCS; 2017-05-14)
PROC: 4A023N7 Measurement of Cardiac Sampling and Pressure, Left Heart, Percutaneous Approach (ICD-10-PCS; 2017-05-14)
PROC: B213YZZ Fluoroscopy of Multiple Coronary Artery Bypass Grafts using Other Contrast (ICD-10-PCS; 2017-05-14)
PROC: B211YZZ Fluoroscopy of Multiple Coronary Arteries using Other Contrast (ICD-10-PCS; 2017-05-14)
PROC: B215YZZ Fluoroscopy of Left Heart using Other Contrast (ICD-10-PCS; 2017-05-14)
DX: I21.4 Non-ST elevation (NSTEMI) myocardial infarction (principal); J18.9 Pneumonia, unspecified organism; J96.01 Acute respiratory failure with hypoxia; I50.23 Acute on chronic systolic (congestive) heart failure; N17.9 Acute kidney failure, unspecified; I11.0 Hypertensive heart disease with heart failure; J44.0 Chronic obstructive pulmonary disease with (acute) lower respiratory infection; J44.1 Chronic obstructive pulmonary disease with (acute) exacerbation; F31.4 Bipolar disorder, current episode depressed, severe, without psychotic features; E11.65 Type 2 diabetes mellitus with hyperglycemia; Z86.73 Personal history of transient ischemic attack (TIA), and cerebral infarction without residual deficits; E78.5 Hyperlipidemia, unspecified; K21.9 Gastro-esophageal reflux disease without esophagitis; I25.10 Atherosclerotic heart disease of native coronary artery without angina pectoris; Z95.1 Presence of aortocoronary bypass graft; F17.210 Nicotine dependence, cigarettes, uncomplicated; G40.909 Epilepsy, unspecified, not intractable, without status epilepticus; Z86.010 Personal history of colon polyps; Z90.49 Acquired absence of other specified parts of digestive tract; Z90.710 Acquired absence of both cervix and uterus; T14.8 Other injury of unspecified body region; W57.XXXA Bitten or stung by nonvenomous insect and other nonvenomous arthropods, initial encounter; Z71.6 Tobacco abuse counseling; F41.9 Anxiety disorder, unspecified; Z79.82 Long term (current) use of aspirin
CPT/HCPCS: 36415; 71010; 71250; 80048; 80053; 80061; 80076; 82308; 82550; 82553; 82607; 82947; 83036; 83880; 84484; 85025; 85027; 85347; 85379; 85610; 85730; 87040; 87070; 87205; 93005; 93306; 94640; 94760; 96365; 96375; 99285; C1725; C1769; C1874; C1887; C1894; J0153; J0456; J0461; J0696; J1644; J1650; J1815; J1940; J2250; J2270; J2405; J2920; J2930; J3010